=== PATIENT | female | born 1965 | race Two or more races ===

== ENCOUNTER 2017-07-06 03:16 | Emergency (ER) | payer OTHER ==
[~2017-07-06] VITALS: Ht 152.4 cm; Wt 53.7 kg
[2017-07-06] MEDS ORDERED: SODIUM CHLORIDE 0.9% 1,000ML IVBOLUS ONE (04:00)
[2017-07-06 04:23] LABS: RAPID INFLUENZA A Negative (Negative); RAPID INFLUENZA B Negative (Negative)
[2017-07-06] MEDS ORDERED: ONDANSETRON 2MG/ML, 2ML ONE (04:24)
[2017-07-06] MEDS ORDERED: ONDANSETRON 2MG/ML, 2ML IVPush ONE (04:30)
[2017-07-06] MEDS ORDERED: CEFTRIAXONE PMX 1GM/50ML 50 ML ONE (04:36)
[2017-07-06] MEDS ORDERED: CEFTRIAXONE PMX 1GM/50ML 50 ML IV ONE (05:00)
[2017-07-06] MEDS ORDERED: ACETAMINOPHEN 325 MG TABLET ONE (05:28)
[2017-07-06 05:32] VITALS: BP 122/70
== END 2017-07-06 05:38 | disposition home or self-care (01) ==
LOC: ED 05:32
DX: J02.0 Streptococcal pharyngitis (principal); G43.909 Migraine, unspecified, not intractable, without status migrainosus
CPT/HCPCS: 87400; 87880; 93005; 96361; 96365; 96375; 99285; J0696; J2405; J7030